=== PATIENT | female | born 1960 | race Caucasian/White ===

== ENCOUNTER 2017-02-14 13:38 | Emergency (ER) | payer BC ==
--- NOTE | 2017-02-14 13:47 | PDOC ---
History of Present Illness - General Chief Complaint: Injury Stated Complaint: LEFT ANKLE INJURY Time Seen by Provider: 02/14/17 13:42 History Source: Patient - History of Present Illness Initial Comments: 02/14/17 13:55 Patient is a 56 y.o. female with a PMH of neuropathy who presents to our ED today following a fall yesterday evening. Patient states she was walking down a flight of stairs when she fell. Patient denies any pre-fall lightheadedness, shortness of breath, chest pain or diaphoresis. Patient notes she did not turn on the light and was carrying her laptop and a glass and this is likely the reason she fell. Patient is ambulatory with crutches (crutches from a prior injury) and notes Advil was not controlling her pain prompting her visit to our ED today. NKDA Surgical: Ovarian cyst removal Social: (+) cigarettes, social alcohol, denies recreational drugs PMD: Dr. Blanco Past History - Past Medical History Allergies/Adverse Reactions: Allergies Allergy/AdvReac Type Severity Reaction Status Date / Time No Known Allergies Allergy Verified 02/14/17 13:40 Home Medications: Ambulatory Orders Cyclobenzaprine HCl 5 mg PO DAILY 02/14/17 Escitalopram Oxalate [Lexapro -] 20 mg PO DAILY 02/14/17 Gabapentin 300 mg PO TID 02/14/17 Naproxen [Naprosyn -] 500 mg PO BID PRN #14 tablet 02/14/17 Trazodone HCl 100 mg PO HS 02/14/17 COPD: No Other medical history: NEUROPATHY - Immunization History Immunization Up to Date: Yes (IN LAST 10 YEARS) - Suicide/Smoking/Psychosocial Hx Smoking History: Current some day smoker Have you smoked in the past 12 months: Yes Information on smoking cessation initiated: Yes 'Breaking Loose' booklet given: 02/14/17 Substance Use Type: None Review of Systems - Review of Systems Constitutional: No: Chills, Fever Respiratory: No: Shortness of Breath Cardiac (ROS): No: Chest Pain All Other Systems: Reviewed and Negative *Physical Exam - Physical Exam General Appearance: Yes: Nourished, Appropriately Dressed Respiratory/Chest: positive: Lungs Clear Cardiovascular: positive: S1, S2 Gastrointestinal/Abdominal: positive: Soft Musculoskeletal: negative: Vertebral Tenderness Extremity: positive: Normal Capillary Refill, Pelvis Stable, Other (L lateral malleous swollen; TTP; full ROM; LLE neurovascular intact) Integumentary: positive: Other (2 cm abrasion on LLE - infrapatellar) Neurologic: 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 female who presents following a likely mechanical fall c/o L foot injury. PLAN: 1. L foot ankle XR as per [facility] rules 2. Toradol Reassess 02/14/17 15:06 X-ray shows L talus avulsion fracture Spoke with Dr. Stinson Oh - recommends posterior splint and follow up with Dr. De La Cruz (orthopedic surgery). 02/14/17 15:14 Posterior splint of LLE with outpatient prescription for Naproxen. Patient discharged home with referral to orthopedic surgeon and return precautions. *DC/Admit/Observation/Transfer Diagnosis at time of Disposition: Talus fracture - Discharge Dispostion Disposition: HOME Condition at time of disposition: Good Admit: No - Prescriptions Prescriptions: Naproxen [Naprosyn -] 500 mg PO BID PRN #14 tablet PRN Reason: Pain - Referrals Referrals: Oliverio De La Cruz MD [Staff Physician] - - Patient Instructions Printed Discharge Instructions: DI for Avulsion Fracture Additional Instructions: Please make a follow up appointment with Dr. Oliverio De La Cruz, orthopedic surgeon, within the next 5-7 days. Please return to the Emergency Department for any new , worsening or concerning symptoms.
[2017-02-14 13:54] VITALS: BP 111/73; PULSE 67; TEMP 97.9; BMI 25.5
[2017-02-14] MEDS ORDERED: KETOROLAC TROMETHAMINE 15 MG/ML VIAL IM ONE (14:16)
--- NOTE | 2017-02-14 14:16 | PDOC ---
Attending Attestation - Resident Resident Name: Jossy Rodas - ED Attending Attestation I have performed the following: I have examined & evaluated the patient, The case was reviewed & discussed with the resident, I agree w/resident's findings & plan, Exceptions are as noted - HPI HPI: 02/14/17 14:11 56yo F p/w L ankle pain + R knee pain after she missed a step going downstairs at home last night. Pt states she didn't turn the lights on and fell down 2 stairs while carrying a cup and her computer. She states she landed on her R knee, but the L dorsum of her foot got caught behind her and slammed onto the ground. Denies LOC, head strike or other injuries. Was initially able to ambulate but this morning used her crutches to get here that she had from a previous injury. Was otherwise in her usual state of good health prior to the fall, denies fevers, chills, chest pain, shortness of breath, abdominal pain, nausea, vomiting, diarrhea, dizziness, weakness or numbness. - Physicial Exam PE: 02/14/17 15:27 GENERAL: Awake, alert, and fully oriented, in no acute distress HEAD: No signs of trauma EYES: PERRLA, EOMI, sclera anicteric, conjunctiva clear ENT: Auricles normal inspection, hearing grossly normal, nares patent, oropharynx clear without exudates. Moist mucosa NECK: Normal ROM, supple, no lymphadenopathy, JVD, or masses LUNGS: Breath sounds equal, clear to auscultation bilaterally. No wheezes, and no crackles HEART: Regular rate and rhythm, normal S1 and S2, no murmurs, rubs or gallops ABDOMEN: Soft, nontender, normoactive bowel sounds. No guarding, no rebound. No masses EXTREMITIES: LLE: L ankle with swelling and ttp over lateral malleolus and dorsum of L foot. 2+ DP pulse. Normal dorsi and plantar flexion strength and sensation. Full range of motion of the ankle. ABle to wiggle toes. No erythema or lesions. Remainder of extremities: Normal range of motion, no edema. No clubbing or cyanosis. No cords, erythema, or tenderness. 2+ peripheral pulses NEUROLOGICAL: Normal speech, cranial nerves intact, negative pronator drift, 5/ 5 strength in all 4 extremities, normal sensation to light touch in all 4 extremities, normal cerebellar exam, normal gait, normal reflexes and tone SKIN: R knee: superficial 1x1cm circular abrasion inferior to the patella that is hemostatic with no erythema or DC. Remainder of skin: Warm, Dry, normal turgor, no rashes or lesions noted. - Medical Decision Making 02/14/17 15:30 Foot/Ankle pain. +concern for bony injury due to ttp over dorsum of L foot and lat malleolus, neurovascularly intact. Plan: -toradol -XR -reassess 02/14/17 15:41 XR with talur avulsion fracture. Discussed with Dr. Pereira from ortho who recommends post foot splint which was placed w/o complication. Pt neurovascularly intact. I discussed the physical exam findings, ancillary test results and final diagnoses with the patient. I answered all of the patient's questions. The patient was satisfied with the care received and felt comfortable with the discharge plan and treatment plan. The patient will call their primary care physician within 24 hours to arrange follow-up and will return to the Emergency Department with any new, persistent or worsening symptoms.
[2017-02-14] MEDS ORDERED: KETOROLAC TROMETHAMINE 30 MG/1 ML VIAL ONE (14:22)
== END 2017-02-14 15:53 | disposition home or self-care (01) ==
LOC: FER 13:38
PROC: 3E0233Z Introduction of Anti-inflammatory into Muscle, Percutaneous Approach (ICD-10-PCS; principal; 2017-02-14)
DX: S92.102A Unspecified fracture of left talus, initial encounter for closed fracture (principal); W10.9XXA Fall (on) (from) unspecified stairs and steps, initial encounter; Y93.9 Activity, unspecified
CPT/HCPCS: 73610-TC-LT; 73630-TC-LT; 99282-25

== ENCOUNTER 2018-06-22 12:53 | Emergency (ER) | payer BC ==
[2018-06-22] MEDS ORDERED: morphine CARPU-JECT 4 MG/1 ML DISP.SYRIN IVPUSH ONE ×2 (12:58→15:36)
[2018-06-22] MEDS ORDERED: ONDANSETRON 4 MG/2 ML VIAL IVPUSH ONE (12:59)
[2018-06-22] MEDS ORDERED: SODIUM CHLORIDE 0.9% 1000 ML INFUS.BAG IV ONE (13:00)
[2018-06-22 13:02] VITALS: BMI 24.6
[2018-06-22] MEDS ORDERED: morphine SULFATE 4 MG/ML VIAL ONE ×2 (13:03→15:36)
[2018-06-22] MEDS ORDERED: ONDANSETRON 4 MG/2 ML VIAL ONE (13:04)
--- NOTE | 2018-06-22 13:35 | PDOC ---
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 Pt stated pain was on the "L side" and did not radiate. 01/23, sharp associated with nausea. Pt states she had 1 episode of loose stools when the pain started or right before the pain started. She feels short of breath due to the pain and has numbness/tingling in hands and toes. Denies fevers, chills, chest pain, headache, vomiting, vaginal bleeding. She has had c-sections in the past and laparoscopies due to ovarian cysts. She has had abdominal pains in the past but she has never had pain that felt like this. PMD: Bella PMH: see hpi PSH: see hpi Meds: see med rec Allergies: nkda Social: denies Past History - Past Medical History Allergies/Adverse Reactions: Allergies Allergy/AdvReac Type Severity Reaction Status Date / Time No Known Allergies Allergy Verified 06/22/18 12:58 Home Medications: Ambulatory Orders Cyclobenzaprine HCl 5 mg PO DAILY 02/14/17 Escitalopram Oxalate [Lexapro -] 20 mg PO DAILY 02/14/17 Gabapentin 300 mg PO TID 02/14/17 Naproxen [Naprosyn -] 500 mg PO BID PRN #14 tablet 02/14/17 traZODone HCL [Trazodone HCl] 100 mg PO HS 02/14/17 COPD: No Psychiatric Problems: Yes - Immunization History Immunization Up to Date: Yes (IN LAST 10 YEARS) - Suicide/Smoking/Psychosocial Hx Smoking History: Current every day smoker Have you smoked in the past 12 months: Yes Information on smoking cessation initiated: No 'Breaking Loose' booklet given: 02/14/17 Hx Alcohol Use: No Drug/Substance Use Hx: No Substance Use Type: None Review of Systems - Review of Systems Constitutional: No: Chills, Fever HEENTM: No: Symptoms Reported Respiratory: Yes: Shortness of Breath. No: Cough Cardiac (ROS): No: Chest Pain, Lightheadedness, Palpitations, Chest Tightness ABD/GI: Yes: See HPI, Diarrhea, Nausea, Abdominal cramping, Other (Pt unsure as to whether she had tarry or bloody stools). No: Constipated, Vomiting : Yes: Flank Pain. No: Burning, Dysuria, Hematuria Musculoskeletal: No: Symptoms Reported Integumentary: No: Symptoms Reported Neurological: Yes: See HPI, Tingling *Physical Exam - Vital Signs Last Vital Signs Temp Pulse Resp BP Pulse Ox 97.5 F L 65 20 131/87 100 06/22/18 12:54 06/22/18 12:54 06/22/18 12:54 06/22/18 12:54 06/22/18 12:54 - Physical Exam General Appearance: Yes: Nourished, Appropriately Dressed, Severe Distress, Other (Pt doubling over in pain) HEENT: positive: EOMI, EMILIANO. negative: Scleral Icterus (R), Scleral Icterus (L) Neck: positive: Trachea midline, Supple Respiratory/Chest: positive: Lungs Clear, Normal Breath Sounds Cardiovascular: positive: Regular Rhythm, Regular Rate, S1, S2. negative: Edema , JVD, Murmur Vascular Pulses: Carotid (R): 2+, Carotid (L): 2+, Dorsalis-Pedis (R): 2+, Doralis-Pedis (L): 2+ Female Pelvic Exam: negative: CMT, adnexal tenderness Gastrointestinal/Abdominal: positive: Normal Bowel Sounds, Soft, Tenderness (LLQ , negative rosving). negative: Protuberent, Distended, Guarding, Rebound, Hernia, Mass Musculoskeletal: positive: CVA Tenderness (L). negative: CVA Tenderness (R) Extremity: positive: Normal Capillary Refill, Pelvis Stable. 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, Fully Oriented, Alert, Normal Mood/ Affect, Normal Response, Motor Strength 5/5 Moderate Sedation - Procedure Monitoring Vital Signs: Procedure Monitoring Vital Signs Temperature 97.5 F L 06/22/18 12:54 Pulse Rate 65 06/22/18 12:54 Respiratory Rate 20 06/22/18 12:54 Blood Pressure 131/87 06/22/18 12:54 O2 Sat by Pulse Oximetry (%) 100 06/22/18 12:54 ED Treatment Course - LABORATORY CBC & Chemistry Diagram: 06/22/18 13:00 06/22/18 13:00 - RADIOLOGY Radiology Studies Ordered: Category Date Time Status SPIRAL- RENAL-STONE CT [CT] Stat CT Scan 06/22/18 13:23 Ordered - Medications Given in the ED: ED Medications Discontinued Medications Generic Name Dose Route Start Last Admin Trade Name Susan PRN Reason Stop Dose Admin Morphine Sulfate 4 mg 06/22/18 12:58 06/22/18 13:05 Morphine Injection - IVPUSH 06/22/18 12:59 4 mg ONCE ONE Administration Ondansetron HCl 4 mg 06/22/18 12:59 06/22/18 13:07 Zofran Injection IVPUSH 06/22/18 13:00 4 mg ONCE ONE Administration Sodium Chloride 1,000 ml 06/22/18 13:00 06/22/18 13:00 Normal Saline - IV 06/22/18 13:01 1,000 ml ONCE ONE Administration Medical Decision Making - Medical Decision Making 06/22/18 13:35 Pt is a 57yo F with PMH of Depression, Anxiety, Ovarian Cysts presenting to ED with for sudden onset 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 Pt stated pain was on the "L side" and did not radiate. 10/10, sharp associated with nausea. Pt states she had 1 episode of loose stools when the pain started or right before the pain started. She feels short of breath due to the pain and has numbness/tingling in hands and toes. Denies fevers, chills, chest pain, headache, vomiting, vaginal bleeding. She has had c-sections in the past and laparoscopies due to ovarian cysts. Vitals: wnl PE: L flank tenderness, LLQ tenderness, no rebound, No masses. Pt highly uncomfortable and writhing. pulses palpable bilaterally. Pt felt clammy. Ddx: Nephrolithiasis, perforation, diverticulitis, colitis, Torsion, TOA, PID, AAA, Dissection, Pyelonephritis, SBO, appendicitis, mesenteric ischemia -cbc, cmp, lactic acid, lipase, ua -IV fluids, morphine, zofran -POCUS POCUS: possible L hydronephrosis however indeterminate. No AAA. Pt feeling much more comfortable after morphine. L flank tenderness when ultrasound probe applied. -Spiral CT 06/22/18 15:29 UA postive for 3+blood and calcium oxalate crystals CBC wnl Chem wnl Lipase wnl Lactic 3.6 CT: No hydroureteronephrosis, renal or ureteral stone bilaterally. 2cm gallstone without CT evidence of acute cholecystitis. Small sclerotic density in superior endplate of L3 vertebral body which is nonspecific. Minimal L5-S1 disc bulge/posterior spur formation. No free air or free fluid Pt is ambulating to bathroom. Denies numbness/tingling weakness. Pelvic exam performed due to history of ovarian cysts: no adnexal tenderness or CMT tenderness. -rpt lact. Pt states she think she may have seen a stone in the urine sample. With blood and calcium oxalate crystals, pt may have passed a stone. She still has slight tenderness to the LLQ but pt states she feels sore, not as much pain as before. Rpt vitals normal. 06/22/18 15:35 2mg morphine. Will do guaiac and po challenge 06/22/18 17:24 Pt feeling better. Lact 1.0, Guaiac negative. Most likely passed stone. Will dc, given referral to urology and return precautions *DC/Admit/Observation/Transfer Diagnosis at time of Disposition: Kidney stones, calcium oxalate, Flank pain Abdominal pain Qualifiers: Abdominal location: left lower quadrant Qualified Code(s): R10.32 - Left lower quadrant pain - Discharge Dispostion Disposition: HOME Condition at time of disposition: Improved Decision to Admit order: No - Referrals Referrals: Jaki Blanco MD [Primary Care Provider] - Jamie Brewer MD., [Staff Physician] - - Patient Instructions Printed Discharge Instructions: DI for Kidney Stones Additional Instructions: You were seen in the emergency room today for pain that started suddenly. We think that you may have passed a stone and that the pain was caused by a kidney stone. A copy of the urine results were given to you. I highly recommend that you see a urologist. You can see Dr. Brewer Address: [address] [place] [id number] Please try to make an appointment sometime this week. Mention that you were seen in the emergency room. Make sure you make an appointment with your primary care doctor as well. You can take Motrin for the pain as needed. Keep yourself well hydrated, stay away from sodas, caffeine. Drink lots of water! Come back to the emergency room if you have severe abdominal pain, you have pain after you eat, there is blood in the stool, you develop fever or if any new concerning symptom develops. Thank you - Post Discharge Activity
[2018-06-22 13:38] LABS: BASO % 0.5 % (0-2.0); EOS % 4.9 % (0-4.5); HEMATOCRIT 43.4 % (32.4-45.2); LYMPH % 33.3 % (8-40); MCH 30.7 pg (25.7-33.7); MCHC 32.3 g/dl (32.0-36.0); MEAN CELL VOLUME 94.9 fl (80-96); MEAN PLT VOLUME 8.9 fl (7.5-11.1); MONO % 6.2 % (3.8-10.2); NEUT % 55.1 % (42.8-82.8); PLATELET COUNT 255 K/MM3 (134-434); RBC 4.57 M/mm3 (3.60-5.2); WHITE BLOOD COUNT 8.3 K/mm3 (4.0-10.8)
--- NOTE | 2018-06-22 13:48 | PDOC ---
Attending Attestation - Resident Resident Name: NoaSkylar - ED Attending Attestation I have performed the following: I have examined & evaluated the patient, The case was reviewed & discussed with the resident, I agree w/resident's findings & plan, Exceptions are as noted - HPI HPI: 06/22/18 13:41 57 yo F with h/o depression/ anxiety ovarian cyst, prior laparoscopies here with c/o sudden onset llq pain, left flank pain followed by diarrhea x 1, severe nausea. no vomiting. bowel movement loose, nonbloody. no sick contacts. no f/c no urinary complaints. no h/o prior renal colic. pt states since onset of severe pain, she becamse lightheaded with tingling and cramping in her arms and toes bilaterally. has been taking medicine for anxiety. pt is very uncomfortable on initial evaluation and additional history is provided by her . - Physicial Exam PE: 06/22/18 13:43 awake alert mild distress, diaphoretic, lying on side, lungs clear bilaterally heart rrr no mrg abd soft mild llq ttp, no rebound no guarding, left cva tenderness. ext wwp no edema. 2 + synnetric dp. radial pulses. - Medical Decision Making 06/22/18 13:45 57 yo F h/o anxiety, depression,ov cyst here with sudden onset llq pain, and likley hyperventilation syndrome causing tingling in fingers and feet. differential diagnosis includes renal colic, diverticulitis, ovarian cyst rupture or torsion , uti pyelo, colitis, electrolyte abnormality. plan focused bedside us renal, ao. labs ua focused ED Ultrasound REnal performed mild prominance of left renal noted. right renal normal. bladder nondistended. focused US aorta , aorta scanned in two planes using phased array transducer. all measurement les than 2.5 cm. measured at proximal, mid and distal aorta. impression: no AAA plan ct a/p eval for renal colic, . ua labs. pt pain controlled with morphinen zofran for nausea, now calm, pt states her tingling in hands and feet resolved.
[2018-06-22 14:02] LABS: URINE APPEARANCE Clear; URINE BILIRUBIN Negative (NEGATIVE); URINE COLOR Yellow; URINE GLUCOSE (UA) Negative (NEGATIVE); URINE KETONE 1+ (NEGATIVE); URINE LEUK ESTERASE TRACE (NEGATIVE); URINE NITRITE Negative (NEGATIVE); URINE PROTEIN Negative (NEGATIVE); URINE UROBILINOGEN 0.2 (0.2-1.0)
[2018-06-22 14:03] LABS: ALBUMIN 4.2 g/dl (3.4-5.0); ALK PHOS 100 U/L (45-117); ANION GAP 13 MMOL/L (8-16); BILIRUBIN,TOTAL 0.8 mg/dl (0.2-1); BLOOD UREA NITROGEN 11 mg/dl (7-18); CALCIUM 9.2 mg/dl (8.5-10); CHLORIDE 107 mmol/L (98-107); CO2 18 mmol/L (21-32); CREATININE 0.8 mg/dl (0.55-1.3); GLUCOSE,RANDOM 136 mg/dl (74-106); POTASSIUM 3.7 mmol/L (3.5-5.1); SGOT/AST 42 U/L (15-37); SGPT/ALT 38 U/L (13-61); SODIUM 138 mmol/L (136-145); TOT PROT 7.1 g/dl (6.4-8.2)
[2018-06-22 14:29] LABS: CALCIUM OXALATE CRYSTALS MODERATE /hpf (NONE SEEN); EPI CELLS FEW /HPF
[2018-06-22 14:47] LABS: LIPASE 214 U/L (73-393)
[2018-06-22 15:16] VITALS: BP 111/64; PULSE 61; TEMP 97.6
== END 2018-06-22 17:26 | disposition home or self-care (01) ==
LOC: FER 12:53 → SUPCPDRO 12:53 → FER 17:26
PROC: 3E0337Z Introduction of Electrolytic and Water Balance Substance into Peripheral Vein, Percutaneous Approach (ICD-10-PCS; principal; 2018-06-22)
PROC: 3E033NZ Introduction of Analgesics, Hypnotics, Sedatives into Peripheral Vein, Percutaneous Approach (ICD-10-PCS; 2018-06-22)
PROC: 3E033GC Introduction of Other Therapeutic Substance into Peripheral Vein, Percutaneous Approach (ICD-10-PCS; 2018-06-22)
DX: R10.32 Left lower quadrant pain (principal); N20.0 Calculus of kidney; F41.8 Other specified anxiety disorders
CPT/HCPCS: 36415; 74176-TC; 80053; 81003; 81015; 82272; 83605; 83690; 85025; 99284-25; J7030

== ENCOUNTER 2019-03-26 08:29 | Day surgery (SDC) | payer BC ==
--- NOTE | 2019-02-19 10:36 | HP ---
DATE OF DICTATION: 02/04/2019 DATE OF ADMISSION: 03/26/2019 REASON FOR ADMISSION: Symptomatic cholelithiasis. BRIEF HISTORY: This is a 58-year-old female who in June of this year had issues with kidney stones. At that time, she was diagnosed on the CAT scan as having gallstones. The CT demonstrated no acute inflammation of the gallbladder at that time. Patient has been asymptomatic until recently (December) when she was in [place] in [facility], at which point she developed sharp pain in the right upper quadrant. The pain was so bad that she had ended up in the hospital there that performed an ultrasound. The ultrasound demonstrated gallstones without evidence of inflammation according to the patient. She was managed medically and now is here today for her removal of gallbladder. Patient has no fatty food intolerance. She has had no fever, chills, or sweats. No change in stool color, urine color. PAST MEDICAL HISTORY: No coronary artery disease, hypertension, or diabetes. PAST SURGICAL HISTORY: She has had 3 laparoscopies in the past regarding ovarian cyst. She has had a section in 1997. ALLERGIES: None. MEDICATION: Cyclobenzaprine, alprazolam, and trazodone. SOCIAL HISTORY: She smokes 1/4 pack of cigarettes per day, does not drink, no history of drug use. PHYSICAL EXAMINATION: HEENT: Unremarkable. No icterus. ABDOMEN: Soft, nontender, nondistended. No CVA tenderness. IMPRESSION/PLAN: Symptomatic cholelithiasis, suspected biliary colic in December: This is a 58-year-old female symptomatic from her biliary disease. At this point I would recommend a laparoscopic cholecystectomy, possibly open. The indications, alternatives, and complications of the procedure discussed, questions answered, will plan to obtain written consent the day of surgery. KEYANNA GRIER M.D. [id number] cc:
[2019-03-26] MEDS ORDERED: DEXAMETHASONE SOD PHOSPHATE 4 MG/1 ML VIAL ONE (09:32)
[2019-03-26] MEDS ORDERED: KETOROLAC TROMETHAMINE 30 MG/1 ML VIAL ONE (09:32)
[2019-03-26] MEDS ORDERED: SODIUM CHLORIDE 0.9% P/F 10 ML VIAL IJ ONE (09:32)
[2019-03-26] MEDS ORDERED: ceFAZolin SODIUM 1 GM VIAL ONE (09:32)
[2019-03-26] MEDS ORDERED: LIDOCAINE HCL/PF 2% SDV 5ML VIAL ONE (09:32)
[2019-03-26] MEDS ORDERED: ONDANSETRON 4 MG/2 ML VIAL ONE ×2 (09:32→13:22)
[2019-03-26 09:34] VITALS: BMI 23.4
[2019-03-26] MEDS ORDERED: PROPOFOL 20 ML ONE (09:56)
[2019-03-26] MEDS ORDERED: MIDAZOLAM HCL 2 MG/2 ML SINGLE DOSE VIAL ONE (09:56)
[2019-03-26] MEDS ORDERED: ROCURONIUM BROMIDE 50 MG/5 ML SYRINGE ONE (09:56)
[2019-03-26] MEDS ORDERED: traZODone HCL 100 MG TABLET (FP) PO PRN (10:31)
[2019-03-26] MEDS ORDERED: CYCLOBENZAPRINE HCL 5 MG TABLET PO PRN (10:31)
[2019-03-26] MEDS ORDERED: morphine SULFATE 4 MG/ML VIAL IVPB PRN (10:32)
[2019-03-26] MEDS ORDERED: ONDANSETRON 4 MG/2 ML VIAL IVPUSH PRN (10:32)
[2019-03-26] MEDS ORDERED: ACETAMINOPHEN 325 MG TABLET (FP) PO PRN (10:32)
[2019-03-26] MEDS ORDERED: D5-1/2NS+20 MEQ KCL - 20 MEQ/1,000 ML INFUS.BAG IV SCH (10:45)
[2019-03-26] MEDS ORDERED: DESFLURANE GAS 240 ML BOTTLE IH ONE (11:15)
[2019-03-26] MEDS ORDERED: NEOSTIGMINE METHYLSULFATE 0.5 MG/ML - 10 ML MDV ONE (11:26)
[2019-03-26] MEDS ORDERED: GLYCOPYRROLATE 0.2 MG/1 ML VIAL ONE (11:27)
[2019-03-26] MEDS ORDERED: LACTATED RINGERS SOLUTION 1,000 ML IV SCH (13:30)
[2019-03-26] MEDS ORDERED: AMOX TR/POT CLAV 875MG/125MG TABLETS (FP) PO SCH (14:45)
[2019-03-26] MEDS: oxyCODONE HCL 5 MG TABLET PO PRN ×2 (16:40→22:08)
[2019-03-26] MEDS: AMOX TR/POT CLAV 875MG/125MG TABLETS (FP) PO SCH (22:45)
[2019-03-27] MEDS: oxyCODONE HCL 5 MG TABLET PO PRN (01:54)
[2019-03-27] MEDS: AMOX TR/POT CLAV 875MG/125MG TABLETS (FP) PO SCH (08:40)
[2019-03-27] MEDS ORDERED: ENOXAPARIN NA (PORCINE) 40 MG/0.4 ML DISP.SYRIN SQ SCH (10:00)
[2019-03-27] MEDS ORDERED: PANTOPRAZOLE SODIUM 40 MG VIAL IVPUSH SCH (10:00)
[2019-03-27] MEDS ORDERED: ESCITALOPRAM OXALATE 20 MG TABLET (FP) PO SCH (10:00)
[2019-03-27 10:26] VITALS: BP 104/69; PULSE 52; TEMP 98
--- NOTE | 2019-03-27 10:44 | PN ---
Progress Note (short form) - Note Progress Note: Pt is POD1 s/p lap ross under GA. She has c/o "gas pain" after the laparoscopy. She does state that her pain is well-controlled with IV dilaudid, and is motivated to ambulate and wants to be discharged. Will hold off on adding any other pain medications unless pain worsens.
--- NOTE | 2019-03-27 14:05 | OP ---
DATE OF OPERATION: 03/26/2019 PREOPERATIVE DIAGNOSES: Symptomatic cholelithiasis. POSTOPERATIVE DIAGNOSES: Symptomatic cholelithiasis. PROCEDURE: Laparoscopic cholecystectomy, peritoneal lavage. SURGEON: Dhruv Jo MD ELECTRIC SCOOP OPERATOR: Mark Barry DO ANESTHESIA: Abbie Carpenter MD (general). ESTIMATED BLOOD LOSS: Minimal. SPECIMEN: Gallbladder. INDICATION FOR PROCEDURE: This is a 58-year-old female who has symptomatic biliary disease. She is here for a laparoscopic cholecystectomy. DESCRIPTION OF PROCEDURE: Patient identified and appropriately positioned on the operating room table. After placement of general anesthesia, the abdomen was prepped and draped in the usual sterile fashion with ChloraPrep. An infraumbilical incision was made deep into the subcutaneous tissue. The fascia at the umbilicus divided sharply (patient noted to have a preoperative umbilical hernia not addressed at this setting). The peritoneum incised under direct vision and a a Veress needle followed by a structural needle placed. Also under direct vision, a structural needle placed. The remaining 3 ports placed under direct vision. The gallbladder identified in the right upper quadrant. There was omentum . The body and dome of the gallbladder of the omentum was taken down with the cautery. The gallbladder reflected over the dome of the liver in standard fashion. Going from lateral to medial, the neck and infundibulum of the gallbladder identified. The cystic duct was circumferentially isolated, clipped, and then divided. The cystic artery identified more medially and posteriorly. It was isolated, clipped, and then divided as well. The gallbladder itself was removed from the liver bed with electrocautery. The right upper quadrant then irrigated with saline. Irrigant retrieved. The operative field noted to be hemostatic. The ports were removed. Port site was hemostatic. The gallbladder itself, as mentioned, was removed from the umbilical port site. The umbilical port site reapproximated with interrupted 3-0 Vicryl suture. All skin closed with 4-0 subcuticular Biosyn followed by Dermabond. At the end of the case, sponge counts were correct. ATTESTATION: Brief operative note handwritten on the preprinted form. [facility] queried prior to giving any narcotics. Lida URIBE [id number] cc: Jaki Blanco MD
--- NOTE | 2019-03-31 16:06 | PATH ---
Surgical Pathology Report Patient Name: MISTY STYLES Med. Rec. #: [id number] /Age/Gender: 1960 (Age: 58) / F Account: [id number] Location: [facility] Taken: 03/26/2019 Received: 03/26/2019 Reported: 03/31/2019 Physicians: Dhruv Jo Specimen(s) Received GALLBLADDER Clinical History Gallstones Final Diagnosis GALLBLADDER, CHOLECYSTECTOMY: CHRONIC CHOLECYSTITIS AND CHOLELITHIASIS. Electronically Signed Mariah Portillo M.D. Gross Description Received in formalin, labeled "gallbladder," is a 7.5 x 3.2 x 2.7 cm. gallbladder with a 0.2 cm. in length portion of cystic duct attached. The outer surface is henry avalos and varies from smooth to shaggy. The lumen contains green, tenacious bile as well as a 2.2 cm greatest dimension brown, irregular cholelith. The mucosa is green and velvety with gold cholesterol stippling. The wall of the gallbladder averages 0.1 cm. in thickness. Training Project Manager sections are submitted in one cassette. 03/27/2019 [facility]03/27/2019
== END 2019-03-27 10:55 | disposition home or self-care (01) ==
LOC: FASUSAT 08:29 → FASU 08:29 → SUATTDRO 08:29 → FM/S 13:45 → FASUSAT 03-27 10:55
PROVIDERS: ATTEND Surgery
PROC: 0FT44ZZ Resection of Gallbladder, Percutaneous Endoscopic Approach (ICD-10-PCS; principal; 2019-03-26 10:30)
DX: K80.80 Other cholelithiasis without obstruction (principal)
CPT/HCPCS: 88304-TC; 94760

== ENCOUNTER 2019-12-03 18:23 | Emergency (ER) | payer BC ==
[2019-12-03 18:34] VITALS: BP 115/68; PULSE 61; TEMP 98.2; BMI 22.0
[2019-12-03] MEDS ORDERED: BENZOIN/ALOE VERA/STORAX/TOLU 58 ML BOTTLE ONE (18:35)
[2019-12-03] MEDS ORDERED: DIPHTH,PERTUSS(ACELL),TET 0.5 ML DISP.SYRIN IM ONE ×2 (18:51→18:52)
--- NOTE | 2019-12-03 18:51 | PDOC ---
History of Present Illness - General Chief Complaint: Injury Stated Complaint: LEFT THUMB LACERATION Time Seen by Provider: 12/03/19 18:48 - History of Present Illness Initial Comments: 12/03/19 18:48 Chief complaint: Laceration HPI: Cut her thumb opening a tin can. Bleeding. No pain. No distal numbness or limited range of motion Past medical history: No diabetes or other chronic illness Physical exam: Alert and oriented no acute distress cooperative Afebrile, vital signs normal Left thumb: Superficial 1 cm laceration lateral aspect of left thumb, between the IP joint and the fingernail, oriented transversely. Sensation intact to the fingertip, to two-point. Full flexion and extension against resistance of the IP joint. Wound edges are well approximated and no penetrating wound, deep puncture, or underlying tissue or bone exposed. Impression: Superficial laceration Plan: Wound was thoroughly scrubbed with normal saline, irrigated, and explored. Superficial. No deep structures exposed. Repaired with Steri-Strips, 2 x 2, and tube gauze after light application of bacitracin. Steri-Strips well adhered. Wound care discussed. Tetanus booster administered. Recheck if sign of infection. Past History - Medical History Allergies/Adverse Reactions: Allergies Allergy/AdvReac Type Severity Reaction Status Date / Time No Known Allergies Allergy Verified 12/03/19 18:25 Home Medications: Ambulatory Orders Cyclobenzaprine HCl 5 mg PO DAILY PRN 02/14/17 Escitalopram Oxalate [Lexapro -] 20 mg PO DAILY 02/14/17 traZODone HCL [Trazodone HCl] 100 mg PO HS PRN 02/14/17 Diclofenac Sodium [Voltaren -] 75 mg PO BID 03/18/19 Anemia: No Asthma: No Cancer: No Cardiac Disorders: No CVA: No COPD: No CHF: No Dementia: No Diabetes: No GI Disorders: No Disorders: No HTN: No Hypercholesterolemia: No Liver Disease: No Psychiatric Problems: Yes Seizures: No Thyroid Disease: No - Surgical History Abdominal Surgery: Yes (Laparoscopic removal of ovarian cysts) Appendectomy: No Cardiac Surgery: No Cholecystectomy: No Lung Surgery: No Neurologic Surgery: No Orthopedic Surgery: No - Immunization History Immunization Up to Date: Yes (IN LAST 10 YEARS) - Psycho-Social/Smoking History Smoking History: Current every day smoker Have you smoked in the past 12 months: Yes Number of Cigarettes Smoked Daily: 3 Information on smoking cessation initiated: Yes 'Breaking Loose' booklet given: 02/14/17 - Substance Abuse Hx (Audit-C & DAST Scrn) How often the patient has a drink containing alcohol: Never Score: In Men: 4 or > Positive; In Women: 3 or > Positive: 0 Screen Result (Pos requires Nsg. Audit-10AR): Negative In the last yr the pt used illegal drug/Rx for NonMed reason: No Score: Yes response is considered Positive: 0 Screen Result (Positive result requires Nsg. DAST-10): Negative *Physical Exam - Vital Signs Last Vital Signs Temp Pulse Resp BP Pulse Ox 98.2 F 61 20 115/68 99 12/03/19 18:24 12/03/19 18:24 12/03/19 18:24 12/03/19 18:24 12/03/19 18:24 Discharge - Discharge Information Problems reviewed: Yes Clinical Impression/Diagnosis: Laceration of finger Qualifiers: Encounter type: initial encounter Finger: thumb Damage to nail status: without damage Foreign body presence: without foreign body Laterality: left Qualified Code(s): S61.012A - Laceration without foreign body of left thumb without damage to nail, initial encounter Condition: Improved Disposition: HOME - Admission No - Follow up/Referral Referrals: Clinton Broderick MD [Staff Physician] - - Patient Discharge Instructions Patient Printed Discharge Instructions: DI for Laceration Repair Steri-Strips Additional Instructions: Recheck if bleeding, increased pain or other sign of infection, or numbness/tingling of the fingertip. May return to ER or follow-up with hand specialist, Dr. Broderick. - Post Discharge Activity
== END 2019-12-03 18:59 | disposition home or self-care (01) ==
LOC: FER 18:23
PROC: 3E0234Z Introduction of Serum, Toxoid and Vaccine into Muscle, Percutaneous Approach (ICD-10-PCS; principal; 2019-12-03)
DX: S61.012A Laceration without foreign body of left thumb without damage to nail, initial encounter (principal)
CPT/HCPCS: 90715; 99283-25

== ENCOUNTER 2020-01-07 07:55 | Day surgery (SDC) | payer BC ==
--- OUTSIDE RECORDS SUMMARY | 2019-12-31 18:36 | XMS ---
:1960 Author Organization [facility] Support Name Relationship Address Phone UE Unavailable Unavailable Unavailable JONATAN TANG [address] [place] [address] JONATAN TANG Spouse [address] [place] [address] Re-disclosure Warning The records that you are about to access may contain information from federally- assisted alcohol or drug abuse programs. If such information is present, then the following federally mandated warning applies: This information has been disclosed to you from records protected by federal confidentiality rules (42 CFR part 2). The federal rules prohibit you from making any further disclosure of this information unless further disclosure is expressly permitted by the written consent of the person to whom it pertains or as otherwise permitted by 42 CFR part 2. A general authorization for the release of medical or other information is NOT sufficient for this purpose. The Federal rules restrict any use of the information to criminally investigate or prosecute any alcohol or drug abuse patient.The records that you are about to access may contain highly sensitive health information, the redisclosure of which is protected by Article 27-F of the [facility] Public Health law. If you continue you may haveaccess to information: Regarding HIV / AIDS; Provided by facilities licensed or operated by the [facility] Office of Mental Health; or Provided by the [facility] Office for People With Developmental Disabilities. If such information is present, then the following [facility] mandated warning applies: This information has been disclosed to you from confidential records which are protected by state law. State law prohibits you from making any further disclosure of this information without the specific written consent of the person to whom it pertains, or as otherwise permitted by law. Any unauthorized further disclosure in violation of state law may result in a fine or usp sentence or both. A general authorization for the release of medical or other information is NOT sufficient authorization for further disclosure. Insurance Providers Payer name Policy type Policy ID Covered Covered alliance party's Policy P michael / Coverage alliance party ID relationship to Rader Inf ormation type rader BC OUT OF [id number] SP [id number] 169 [place] 69 [place] OUT OF [id number] HU [id number] 169 [place] 69 BC OUT OF [id number] OT [id number] [place] 69 BC OUT OF [id number] SP [id number] 169 [place] 69 BC OUT OF [id number] HU [id number] 169 [place] 69 SELF PAY INSURANCE
[2020-01-06 10:38] VITALS: BMI 21.4
--- OUTSIDE RECORDS SUMMARY | 2020-01-07 07:59 | XMS ---
:1960 Author Organization [facility] Support Name Relationship Address Phone UE Unavailable Unavailable Unavailable JONATAN TANG [address] [place] [address] JONATAN TANG Spouse [address] [place] [address] Re-disclosure Warning The records that you are [...] is protected by Article 27-F of the [facility] Public Health law. If you continue you may haveaccess to information: Regarding HIV / AIDS; Provided by facilities licensed or operated by the [facility] Office of Mental Health; or Provided by the [facility] Office for People With Developmental Disabilities. If such information is present, then the following [facility] mandated warning applies: This information has been [...] law may result in a fine or mcc sentence or both. A general authorization for the release of medical or other information is NOT sufficient authorization for further disclosure. Insurance Providers Payer name Policy type Policy ID Covered Covered alliance party's Policy P michael / Coverage alliance party ID relationship to Alba Inf ormation type alba BC OUT OF [id number] SP [id number] 169 [place] 69 BC OUT OF [id number] HU [id number] 169 [address] 69 BC OUT OF [id number] OT [id number] 169 [address] 69 BC OUT OF [id number] SP [id number] 169 [address] 69 BC OUT OF [id number] HU [id number] 169 [address] 69 SELF PAY INSURANCE Results ID Date Data Source [id number] 01/03/2020 12:00:00 PM EDT [facility] Name Value Range Interpretation Description Data Sup porting Code Source(s) Document(s ) SARS [facility] coronavirus 2 RNA This lab was ordered by SILVIA LYNCH and reported by [facility]. Procedure
[2020-01-07] MEDS ORDERED: LIDOCAINE HCL/PF 2% SDV 5ML VIAL ONE (08:05)
[2020-01-07] MEDS ORDERED: PROPOFOL 20 ML ONE ×3 (08:05)
[2020-01-07 09:33] VITALS: BP 112/82; PULSE 68; TEMP 97.7
--- NOTE | 2020-01-12 13:05 | PATH ---
Surgical Pathology Report Patient Name: MISTY STYLES [facility]. Rec. #: [id number] /Age/Gender: 1960 (Age: 59) / F Account: [id number] Location: [facility] Taken: 01/07/2020 Received: 01/07/2020 Reported: 01/12/2020 Physicians: Patrice Rodriguez M.D. Specimen(s) Received A: SMALL BOWEL B: ANTRUM Clinical History Rule out colon cancer, GERD Postoperative diagnosis: Gastritis Final Diagnosis A. 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 B. ANTRUM, BIOPSY: MILD CHRONIC GASTRITIS WITH FEATURES OF REACTIVE GASTROPATHY. IMMUNOSTAIN IS NEGATIVE FOR H. PYLORI ORGANISMS. Electronically Signed Mariah Portillo M.D. Gross Description A. Received in formalin, labeled "small bowel" are 2 henry, irregular portions of soft tissue measuring 0.3 and 0.7 cm. in greatest dimension. The specimens are submitted in toto in one cassette. B. Received in formalin, labeled "antrum" are 3 henry, irregular portions of soft tissue ranging from 0.1-0.4 cm. in greatest dimension. The specimens are submitted in toto in one cassette. 01/08/2020 [facility]01/08/2020
== END 2020-01-07 09:33 | disposition home or self-care (01) ==
LOC: FASU-ENDO 07:55
PROVIDERS: ATTEND Internal Medicine Gastroenterology
PROC: 0DB98ZX Excision of Duodenum, Via Natural or Artificial Opening Endoscopic, Diagnostic (ICD-10-PCS; 2020-01-07)
PROC: 0DB68ZX Excision of Stomach, Via Natural or Artificial Opening Endoscopic, Diagnostic (ICD-10-PCS; 2020-01-07)
PROC: 0DJD8ZZ Inspection of Lower Intestinal Tract, Via Natural or Artificial Opening Endoscopic (ICD-10-PCS; principal; 2020-01-07 08:22)
DX: Z12.11 Encounter for screening for malignant neoplasm of colon (principal); K29.80 Duodenitis without bleeding; K29.50 Unspecified chronic gastritis without bleeding; K31.89 Other diseases of stomach and duodenum; K31.9 Disease of stomach and duodenum, unspecified; R10.13 Epigastric pain
CPT/HCPCS: 88305-TC; 88342-TC

== ENCOUNTER 2021-08-23 20:50 | Emergency (ER) | payer BC ==
[2021-08-23] MEDS ORDERED: KETOROLAC TROMETHAMINE 30 MG/1 ML VIAL IVPUSH ONE (20:53)
[2021-08-23] MEDS ORDERED: ONDANSETRON 4 MG/2 ML VIAL IVPUSH ONE (20:53)
[2021-08-23] MEDS ORDERED: SODIUM CHLORIDE 1,000 ML IV ONE (20:59)
[2021-08-23 21:07] VITALS: BP 125/78; PULSE 78; TEMP 97.8; BMI 22.0
[2021-08-23 21:29] LABS: HEMATOCRIT 36.9 % (32.4-45.2); HEMOGLOBIN 13.2 G/dL (10.7-15.3); MCH 33.2 pg (25.7-33.7); MCHC 35.9 g/dl (32.0-36.0); MEAN CELL VOLUME 92.5 fl (80-96); MEAN PLT VOLUME 8.3 fl (7.5-11.1); PLATELET COUNT 223.7 10^3/uL (134-434); RBC 3.99 10^6/uL (3.60-5.2); RDW 13.4 % (11.6-15.6); WHITE BLOOD COUNT 10.5 10^3/uL (4.0-10.8)
[2021-08-23 21:34] LABS: EPITHELIAL CELLS RARE /hpf
[2021-08-23 21:40] LABS: PLATELET ESTIMATE ADEQUATE
[2021-08-23 21:41] LABS: ALBUMIN 3.9 g/dl (3.4-5.0); BILIRUBIN,TOTAL 0.7 mg/dl (0.2-1); CALCIUM 9.4 mg/dl (8.5-10); CREATININE 1.1 mg/dl (0.55-1.3)
== END 2021-08-23 23:41 | disposition home or self-care (01) ==
LOC: FER 20:50
PROC: 3E033GC Introduction of Other Therapeutic Substance into Peripheral Vein, Percutaneous Approach (ICD-10-PCS; principal; 2021-08-23)
DX: N23 Unspecified renal colic (principal)
CPT/HCPCS: 36415; 74176-TC; 80053; 81003; 81015; 85025; 87086; 99285-25

== ENCOUNTER 2021-09-02 22:52 | Emergency (ER) | payer BC ==
[2021-09-02] MEDS ORDERED: SODIUM CHLORIDE 1,000 ML ONE (23:01)
[2021-09-02] MEDS ORDERED: morphine CARPU-JECT 4 MG/1 ML DISP.SYRIN IVPUSH ONE (23:01)
[2021-09-02] MEDS ORDERED: ONDANSETRON 4 MG/2 ML VIAL IVPB ONE (23:01)
[2021-09-02] MEDS ORDERED: KETOROLAC TROMETHAMINE 30 MG/1 ML VIAL IVPUSH ONE (23:01)
[2021-09-02] MEDS ORDERED: morphine SULFATE 4 MG/ML VIAL ONE (23:03)
[2021-09-02] MEDS ORDERED: ONDANSETRON 4 MG/2 ML VIAL ONE (23:04)
[2021-09-02] MEDS ORDERED: KETOROLAC TROMETHAMINE 30 MG/1 ML VIAL ONE (23:04)
[2021-09-02 23:20] LABS: HEMATOCRIT 36.6 % (32.4-45.2); MCH 32.7 pg (25.7-33.7); MCHC 35.4 g/dl (32.0-36.0); MEAN CELL VOLUME 92.1 fl (80-96); MEAN PLT VOLUME 8.1 fl (7.5-11.1); PLATELET COUNT 261.9 10^3/uL (134-434); RBC 3.97 10^6/uL (3.60-5.2); RDW 13.5 % (11.6-15.6); WHITE BLOOD COUNT 13.4 10^3/uL (4.0-10.8)
[2021-09-02 23:26] LABS: PLATELET ESTIMATE ADEQUATE
[2021-09-02 23:28] VITALS: BMI 22.0
[2021-09-02 23:30] VITALS: BP 128/84; PULSE 65; TEMP 98.2
[2021-09-02 23:30] LABS: ALBUMIN 4.1 g/dl (3.4-5.0); BILIRUBIN,TOTAL 0.8 mg/dl (0.2-1)
== END 2021-09-03 00:59 | disposition home or self-care (01) ==
LOC: FER 22:52
PROC: 3E0333Z Introduction of Anti-inflammatory into Peripheral Vein, Percutaneous Approach (ICD-10-PCS; principal; 2021-09-02)
PROC: 3E033NZ Introduction of Analgesics, Hypnotics, Sedatives into Peripheral Vein, Percutaneous Approach (ICD-10-PCS; 2021-09-02)
PROC: 3E033GC Introduction of Other Therapeutic Substance into Peripheral Vein, Percutaneous Approach (ICD-10-PCS; 2021-09-02)
DX: R10.9 Unspecified abdominal pain (principal)
CPT/HCPCS: 36415; 80053; 81003; 81015; 85025; 99284-25

== ENCOUNTER 2022-02-02 09:35 | Inpatient (IN) | payer BC ==
[2022-02-02] MEDS ORDERED: SODIUM CHLORIDE 0.9% 500 ML INFUS.BAG IV ONE ×2 (10:12→10:37)
[2022-02-02 10:25] LABS: HEMATOCRIT 33.4 % (32.4-45.2); MCH 33.7 pg (25.7-33.7); MCHC 35.9 g/dl (32.0-36.0); MEAN CELL VOLUME 93.9 fl (80-96); MEAN PLT VOLUME 8.8 fl (7.5-11.1); PLATELET COUNT 191.9 10^3/uL (134-434); RBC 3.56 10^6/uL (3.60-5.2); RDW 12.7 % (11.6-15.6); WHITE BLOOD COUNT 10.4 10^3/uL (4.0-10.8)
[2022-02-02 10:33] LABS: ALBUMIN 3.7 g/dl (3.4-5.0); BILIRUBIN,TOTAL 0.6 mg/dl (0.2-1); CALCIUM 8.7 mg/dl (8.5-10); CREATININE 0.8 mg/dl (0.55-1.3); TOT PROT 6.3 g/dl (6.4-8.2)
[2022-02-02 10:37] LABS: PLATELET ESTIMATE ADEQUATE
[2022-02-02] MEDS ORDERED: LIDOCAINE 5% TOPICAL PATCH TP ONE (10:37)
[2022-02-02] MEDS ORDERED: ACETAMINOPHEN 1000 MG/100 ML BAG IVPB ONE (10:37)
[2022-02-02] MEDS ORDERED: ACETAMINOPHEN INJECTION 100 ML IVPB ONE (10:40)
[2022-02-02] MEDS ORDERED: LIDOCAINE 5% TOPICAL PATCH ONE (10:46)
[2022-02-02 16:40] VITALS: BMI 22.8
[2022-02-02] MEDS ORDERED: SODIUM CHLORIDE 1,000 ML IV SCH (17:30)
[2022-02-02] MEDS ORDERED: LIDOCAINE 5% TOPICAL PATCH TP SCH ×2 (17:45)
[2022-02-02] MEDS: ACETAMINOPHEN 500 MG TABLET (FP) PO PRN (20:04)
[2022-02-02] MEDS ORDERED: traZODone HCL 100 MG TABLET (FP) PO SCH (22:00)
[2022-02-02] MEDS ORDERED: LIDOCAINE PATCH REMOVAL MC SCH ×2 (22:00)
[2022-02-02] MEDS ORDERED: QUEtiapine FUMARATE 25 MG TABLET PO SCH (22:00)
[2022-02-03] MEDS: LIDOCAINE PATCH REMOVAL MC SCH (05:39)
[2022-02-03 08:34] LABS: MAGNESIUM 2.1 mg/dL (1.8-2.4)
[2022-02-03] MEDS: LIDOCAINE 5% TOPICAL PATCH TP SCH (09:09)
[2022-02-03] MEDS ORDERED: LIDOCAINE 5% TOPICAL PATCH TP SCH (10:00)
[2022-02-03] MEDS: ACETAMINOPHEN 500 MG TABLET (FP) PO PRN ×2 (13:12→18:39)
[2022-02-03] MEDS ORDERED: SODIUM CHLORIDE 1,000 ML IV SCH (15:00)
[2022-02-03] MEDS ORDERED: SERTRALINE HCL 50 MG TABLET (FP) PO SCH ×2 (15:00→22:00)
[2022-02-03] MEDS ORDERED: MAGNESIUM HYDROX 2400MG/30ML ORAL SUSPENSION 30 ML CUP PO PRN (21:24)
[2022-02-03] MEDS ORDERED: ONDANSETRON *ODT* 4 MG TABLET SL PRN (21:26)
[2022-02-03] MEDS ORDERED: LIDOCAINE PATCH REMOVAL MC SCH (22:00)
[2022-02-03] MEDS ORDERED: DOCUSATE SODIUM 100 MG CAPSULE (FP) PO SCH (22:00)
[2022-02-03] MEDS ORDERED: MELATONIN 5 MG TABLETS PO SCH (22:00)
[2022-02-04] MEDS: LIDOCAINE PATCH REMOVAL MC SCH (00:03)
[2022-02-04] MEDS: ACETAMINOPHEN 500 MG TABLET (FP) PO PRN (06:42)
[2022-02-04 10:07] VITALS: RESP 16
[2022-02-04] MEDS: LIDOCAINE 5% TOPICAL PATCH TP SCH (10:17)
[2022-02-04 14:36] VITALS: BP 122/54; PULSE 52; TEMP 98.2
== END 2022-02-04 14:55 | disposition home or self-care (01) | DRG 312 ==
LOC: FER 09:35 → FM/S 13:51 → INTOOBSV 13:51 → OBSVTOIN 17:13
PROVIDERS: ADMIT Internal Medicine; ATTEND Internal Medicine
DX: I95.1 Orthostatic hypotension (principal); S09.90XA Unspecified injury of head, initial encounter; W19.XXXA Unspecified fall, initial encounter; Y93.9 Activity, unspecified; Y92.89 Other specified places as the place of occurrence of the external cause; Y99.9 Unspecified external cause status; R00.1 Bradycardia, unspecified; G47.00 Insomnia, unspecified; F17.210 Nicotine dependence, cigarettes, uncomplicated
CPT/HCPCS: 36415; 70450-TC; 71046-TC-FY; 71250-TC; 72125-TC; 72128-TC; 72131-TC; 72220-TC-FY; 73030-TC-LT-FY; 73030-TC-RT-FY; 80053; 81003; 82533; 82550; 83735; 84443; 84484; 85027; 87086; 93005; 93306-TC; 93880-TC; 99285-25; C9803-CS; G0378; Q0162; U0003; U0005